=== PATIENT | male | born 1955 | race Caucasian/White ===

== ENCOUNTER 2020-05-17 08:19 | Inpatient (IN) ==
[2020-05-17] MEDS ORDERED: Ondansetron 4 MG/2 ML VIAL IVP PRN (09:54)
[2020-05-17] MEDS ORDERED: *HR* HYDROcodone/Acet 5/325 mg TABLET PO PRN (09:54)
[2020-05-17] MEDS ORDERED: Naloxone 0.4 MG/ML INJ IVP PRN (09:54)
[2020-05-17] MEDS ORDERED: *HR* Dextrose 50 % in Water (Vial) 50 ML VIAL IVP PRN (10:04)
[2020-05-17] MEDS ORDERED: Dextrose Gel 15 GM/37.5 ML TUBE PO PRN ×2 (10:04)
[2020-05-17] MEDS ORDERED: D5% in Water 1,000 ML IVC PRN (10:04)
[2020-05-17] MEDS ORDERED: levoFLOXacin 750 MG/150 ML 750 MG/150 ML BAG IVPB SCH (10:15)
[2020-05-17] MEDS: Ipratropium/Albuterol Neb 3 ML IH SCH ×5 (11:04→23:00)
[2020-05-17 11:30] LABS: ABG Base Excess 7 mEq/L (-2 to 3); ABG HCO3 36 mEq/L (21-27); ABG Oxygen Saturation 92 % (95-98); ABG PCO2 72 mmHg (35-45); ABG PH 7.31 pH Units (7.32-7.45); ABG PO2 73 mmHg (85-104); ABG TCO2 38 mEq/L (20-26)
[2020-05-17] MEDS ORDERED: *HR* Heparin 5,000 UNIT/ML VIAL IVP ONE (11:32)
[2020-05-17] MEDS ORDERED: *HR* Heparin 5,000 UNIT/ML VIAL IVP PRN ×2 (11:32)
[2020-05-17] MEDS ORDERED: Perflutren Lipid Microsphere 1.3 ML in 0.9 % Sodium Chloride 8.7 ML IVP PRN (11:33)
[2020-05-17 12:09] LABS: Hematocrit 42.7 % (37.5-50.1); Hemoglobin 12.7 g/dL (12.9-16.9); Mean Corpuscular HGB Conc 29.7 g/dL (31.6-35.5); Mean Corpuscular Hemoglobin 29.5 pg (28.0-33.3); Mean Corpuscular Volume 99.1 fL (83.0-100.0); Mean Platelet Volume 10.9 fL (9.4-12.4); Platelet Count 160 K/mcL (140-400); Red Blood Count 4.31 M/mcL (4.19-5.50); Red Cell Distribution Width 12.5 % (11.5-14.5); White Blood Count 6.1 K/mcL (4.3-11.1)
[2020-05-17] MEDS: MethylPREDNISolone 40 MG/ML VIAL IVP SCH ×3 (12:54→18:28)
[2020-05-17] MEDS: Insulin LISPRO 300 UNITS/3 ML VIAL SQ SCH ×2 (13:02→18:29)
[2020-05-17] MEDS: Heparin 25,000UNIT/250ML 1/2NS 25,000 UNIT/250 ML IV.SOLN IVC SCH (13:47)
[2020-05-17 14:13] LABS: Heparin anti-factor XA UFH 0.48 IU/mL (0.30-0.70)
[2020-05-17 14:14] LABS: INR 1.1; Prothrombin Time 12.2 Seconds (9.4-12.1)
[2020-05-17] MEDS: carvediloL 6.25 MG TABLET PO SCH (18:29)
[2020-05-17] MEDS: lamoTRIgine 100 MG TABLET PO SCH (19:42)
[2020-05-17] MEDS: Budesonide/Formoterol 160/4.5 1 PUFF INH IH SCH (20:30)
[2020-05-18] MEDS: MethylPREDNISolone 40 MG/ML VIAL IVP SCH ×3 (00:04→20:08)
[2020-05-18 01:52] LABS: Basophils % 0.1 %; Hemoglobin 12.3 g/dL (12.9-16.9); Immature Granulocytes % 0.9 % (0-4); Lymphocytes # 0.6 K/mcL (0.6-4.6); Lymphocytes % 7.7 %; Monocytes # 0.4 K/mcL (0.0-1.3); Monocytes % 4.3 %; Neutrophils # 7.1 K/mcL (1.6-8.9); Platelet Count 159 K/mcL (140-400); Red Cell Distribution Width 12.4 % (11.5-14.5); White Blood Count 8.2 K/mcL (4.3-11.1)
[2020-05-18 02:11] LABS: BUN/Creatinine Ratio 30 (6-26); Blood Urea Nitrogen 22 mg/dL (8-23); Calcium 8.8 mg/dL (8.6-10.3); Carbon Dioxide 32 mEq/L (23-29); Chloride 101 mEq/L (98-107); Glucose 249 mg/dL (70-105); Magnesium 1.8 mg/dL (1.6-2.6); Osmolality,Calculated 300 (280-300); Phosphorous 1.6 mg/dL (2.7-4.5); Potassium 4.6 mEq/L (3.5-5.1); Sodium 139 mEq/L (136-145); eGFR For African Americans > 60 (> 60); eGFR For Non-African Americans > 60 (> 60)
[2020-05-18] MEDS: Ipratropium/Albuterol Neb 3 ML IH SCH ×6 (03:57→23:49)
[2020-05-18] MEDS ORDERED: *HR* Enoxaparin 40 MG/0.4 ML SYRINGE SQ SCH (06:00)
[2020-05-18 09:22] LABS: VBG HCO3 32 mEq/L (21-27); VBG PCO2 58 mmHg (41-51); VBG PH 7.35 pH Units (7.32-7.42); VBG PO2 219 mmHg (25-50)
[2020-05-18] MEDS: carvediloL 6.25 MG TABLET PO SCH ×2 (10:41→16:55)
[2020-05-18] MEDS: Sennosides 8.6 MG TABLET PO SCH (10:41)
[2020-05-18] MEDS: Insulin DETEMIR 100 UNIT/ML X5UNITS SQ SCH ×2 (10:48→10:52)
[2020-05-18] MEDS: Insulin LISPRO 300 UNITS/3 ML VIAL SQ SCH ×3 (10:50→16:56)
[2020-05-18] MEDS: *HR* Buprenorphine HCl 2 MG SUBLINGUAL TABLET SL SCH (11:03)
[2020-05-18] MEDS: *HR* Buprenorphine HCl 8 MG TAB.SUBL SL SCH (11:03)
[2020-05-18] MEDS: methIMAzole 5 MG TABLET PO SCH (11:03)
[2020-05-18] MEDS: Budesonide/Formoterol 160/4.5 1 PUFF INH IH SCH ×2 (11:44→20:13)
[2020-05-18 12:38] LABS: Hematocrit 36.7 % (37.5-50.1); Hemoglobin 11.4 g/dL (12.9-16.9)
[2020-05-18] MEDS ORDERED: Azithromycin 500 MG in 0.9 % Sodium Chloride 250 ML IVPB ONE (13:56)
[2020-05-18] MEDS: Aspirin Enteric Coated 81 MG Tablet PO SCH (16:56)
[2020-05-18] MEDS: Heparin 25,000UNIT/250ML 1/2NS 25,000 UNIT/250 ML IV.SOLN IVC SCH (17:21)
[2020-05-18 19:06] LABS: Adenovirus Not Detected (Not Detect); Bordetella Pertussis Not Detected (Not Detect); Chlamydophila pneumoniae Not Detected (Not Detect); Coronavirus 229E Not Detected (Not Detect); Coronavirus HKU1 Not Detected (Not Detect); Coronavirus NL63 Not Detected (Not Detect); Coronavirus OC43 Not Detected (Not Detect); Human Metapneumovirus Not Detected (Not Detect); Human Rhinovirus/Enterovirus Not Detected (Not Detect); Influenza A Subtype 2009 H1 Not Detected (Not Detect); Influenza B Not Detected (Not Detect); Mycoplasma pneumoniae Not Detected (Not Detect); Parainfluenza Virus 1 Not Detected (Not Detect); Parainfluenza Virus 2 Not Detected (Not Detect); Parainfluenza Virus 3 Not Detected (Not Detect); Parainfluenza Virus 4 Not Detected (Not Detect); Respiratory Syncytial Virus Not Detected (Not Detect)
[2020-05-18] MEDS: lamoTRIgine 100 MG TABLET PO SCH (20:08)
[2020-05-19 01:48] LABS: VBG HCO3 31 mEq/L (21-27); VBG PCO2 44 mmHg (41-51); VBG PH 7.45 pH Units (7.32-7.42); VBG PO2 162 mmHg (25-50)
[2020-05-19 01:54] LABS: White Blood Count 11.8 K/mcL (4.3-11.1)
[2020-05-19 01:55] LABS: Basophils % 0.1 %; Hematocrit 35.8 % (37.5-50.1); Hemoglobin 11.2 g/dL (12.9-16.9); Immature Granulocytes % 0.9 % (0-4); Lymphocytes # 0.5 K/mcL (0.6-4.6); Lymphocytes % 4.5 %; Mean Corpuscular HGB Conc 31.3 g/dL (31.6-35.5); Mean Corpuscular Hemoglobin 30.8 pg (28.0-33.3); Mean Corpuscular Volume 98.4 fL (83.0-100.0); Monocytes # 0.3 K/mcL (0.0-1.3); Monocytes % 2.9 %; Neutrophils # 10.8 K/mcL (1.6-8.9); Platelet Count 165 K/mcL (140-400); Red Blood Count 3.64 M/mcL (4.19-5.50); Red Cell Distribution Width 12.7 % (11.5-14.5); Segmented Neutrophils % 91.6 %
[2020-05-19 02:03] LABS: BUN/Creatinine Ratio 40 (6-26); Blood Urea Nitrogen 34 mg/dL (8-23); Calcium 8.2 mg/dL (8.6-10.3); Carbon Dioxide 32 mEq/L (23-29); Chloride 101 mEq/L (98-107); Glucose 327 mg/dL (70-105); Magnesium 1.9 mg/dL (1.6-2.6); Osmolality,Calculated 302 (280-300); Potassium 5.3 mEq/L (3.5-5.1); Sodium 136 mEq/L (136-145); eGFR For African Americans > 60 (> 60); eGFR For Non-African Americans > 60 (> 60)
[2020-05-19] MEDS: Ipratropium/Albuterol Neb 3 ML IH SCH ×5 (03:40→20:42)
[2020-05-19] MEDS: Budesonide/Formoterol 160/4.5 1 PUFF INH IH SCH ×2 (07:37→20:42)
[2020-05-19] MEDS: methIMAzole 5 MG TABLET PO SCH (08:43)
[2020-05-19] MEDS: *HR* Buprenorphine HCl 8 MG TAB.SUBL SL SCH (08:43)
[2020-05-19] MEDS: Insulin LISPRO 300 UNITS/3 ML VIAL SQ SCH ×3 (08:43→16:31)
[2020-05-19] MEDS: carvediloL 6.25 MG TABLET PO SCH ×2 (08:44→16:38)
[2020-05-19] MEDS: Aspirin Enteric Coated 81 MG Tablet PO SCH (08:45)
[2020-05-19] MEDS: *HR* Buprenorphine HCl 2 MG SUBLINGUAL TABLET SL SCH (08:45)
[2020-05-19] MEDS: MethylPREDNISolone 40 MG/ML VIAL IVP SCH ×2 (08:45→19:44)
[2020-05-19] MEDS: Sennosides 8.6 MG TABLET PO SCH (08:45)
[2020-05-19] MEDS ORDERED: *HR* Heparin 10,000 UNIT/10 ML VIAL ONE (13:05)
[2020-05-19] MEDS ORDERED: Heparin 1,000 UNITS/500 mL 500 ML ONE (13:05)
[2020-05-19] MEDS ORDERED: 0.9 % Sodium Chloride 1,000 ML ONE ×2 (13:05→13:53)
[2020-05-19] MEDS ORDERED: ISOVUE-370 200 ML INFUS..BTL ONE (13:06)
[2020-05-19] MEDS ORDERED: Nitroglycerin 1,000 MCG/10 ML VIAL IV ONE ×2 (13:06→13:13)
[2020-05-19] MEDS ORDERED: Isovue-300 200 mL Infus..BTL ONE (13:14)
[2020-05-19] MEDS ORDERED: *HR* Midazolam HCl 2 MG/2 ML VIAL ONE (13:50)
[2020-05-19] MEDS ORDERED: *HR* FentaNYL (PF) 100 MCG/2 ML VIAL ONE (13:50)
[2020-05-19] MEDS: lamoTRIgine 100 MG TABLET PO SCH (19:47)
[2020-05-20] MEDS: Ipratropium/Albuterol Neb 3 ML IH SCH ×5 (00:24→15:58)
[2020-05-20 01:35] LABS: Basophils % 0.1 %; Hematocrit 34.7 % (37.5-50.1); Hemoglobin 10.9 g/dL (12.9-16.9); Immature Granulocytes % 0.6 % (0-4); Lymphocytes # 0.5 K/mcL (0.6-4.6); Lymphocytes % 5.8 %; Mean Corpuscular HGB Conc 31.4 g/dL (31.6-35.5); Mean Corpuscular Volume 98.6 fL (83.0-100.0); Mean Platelet Volume 10.7 fL (9.4-12.4); Monocytes # 0.5 K/mcL (0.0-1.3); Monocytes % 5.4 %; Neutrophils # 7.5 K/mcL (1.6-8.9); Platelet Count 159 K/mcL (140-400); Red Blood Count 3.52 M/mcL (4.19-5.50); Segmented Neutrophils % 88.1 %; White Blood Count 8.5 K/mcL (4.3-11.1)
[2020-05-20 01:38] LABS: VBG HCO3 31 mEq/L (21-27); VBG PCO2 38 mmHg (41-51); VBG PH 7.52 pH Units (7.32-7.42); VBG PO2 150 mmHg (25-50)
[2020-05-20 01:53] LABS: BUN/Creatinine Ratio 41 (6-26); Blood Urea Nitrogen 29 mg/dL (8-23); Calcium 8.1 mg/dL (8.6-10.3); Carbon Dioxide 30 mEq/L (23-29); Chloride 103 mEq/L (98-107); Glucose 212 mg/dL (70-105); Osmolality,Calculated 294 (280-300); Phosphorous 2.7 mg/dL (2.7-4.5); Sodium 136 mEq/L (136-145); eGFR For African Americans > 60 (> 60); eGFR For Non-African Americans > 60 (> 60)
[2020-05-20] MEDS ORDERED: *HR* Heparin 5,000 UNIT/ML VIAL SQ SCH (06:00)
[2020-05-20] MEDS: *HR* Buprenorphine HCl 8 MG TAB.SUBL SL SCH (08:33)
[2020-05-20] MEDS: *HR* Buprenorphine HCl 2 MG SUBLINGUAL TABLET SL SCH (08:33)
[2020-05-20] MEDS: carvediloL 6.25 MG TABLET PO SCH (08:34)
[2020-05-20] MEDS: Aspirin Enteric Coated 81 MG Tablet PO SCH (08:34)
[2020-05-20] MEDS: methIMAzole 5 MG TABLET PO SCH (08:34)
[2020-05-20] MEDS: Sennosides 8.6 MG TABLET PO SCH (08:36)
[2020-05-20] MEDS: MethylPREDNISolone 40 MG/ML VIAL IVP SCH (08:36)
[2020-05-20] MEDS: Insulin LISPRO 300 UNITS/3 ML VIAL SQ SCH ×2 (08:40→12:11)
[2020-05-20] MEDS ORDERED: Insulin DETEMIR 100 UNIT/ML X5UNITS SQ SCH (09:00)
[2020-05-20] MEDS: Budesonide/Formoterol 160/4.5 1 PUFF INH IH SCH (11:36)
[2020-05-20 14:53] VITALS: BP 110/66
== END 2020-05-20 16:07 | disposition home or self-care (01) | DRG 189 ==
LOC: 2NNU → SUATTDRO 17:59
PROVIDERS: ADMIT Internal Medicine; ATTEND Family Medicine

== ENCOUNTER 2020-06-19 13:23 | Inpatient (IN) ==
[2020-06-19] MEDS ORDERED: Naloxone 0.4 MG/ML INJ IVP PRN (16:41)
[2020-06-19] MEDS ORDERED: Nitroglycerin 0.4 MG TAB.SUBL SL PRN (19:04)
[2020-06-19] MEDS ORDERED: *HR* Dextrose 50 % in Water (Vial) 50 ML VIAL IVP PRN (19:05)
[2020-06-19] MEDS ORDERED: Dextrose Gel 15 GM/37.5 ML TUBE PO PRN ×2 (19:05)
[2020-06-19] MEDS ORDERED: D5% in Water 1,000 ML IVC PRN (19:05)
[2020-06-19] MEDS ORDERED: Nicotine 14 MG PATCH.TD24 TD PRN (19:06)
[2020-06-19] MEDS: MethylPREDNISolone 40 MG/ML VIAL IVP SCH (20:58)
[2020-06-19] MEDS: Insulin LISPRO 300 UNITS/3 ML VIAL SQ SCH (21:32)
[2020-06-19] MEDS: Ipratropium/Albuterol Neb 3 ML IH SCH ×2 (22:33→23:33)
[2020-06-20] MEDS: MethylPREDNISolone 40 MG/ML VIAL IVP SCH ×4 (00:01→17:50)
[2020-06-20 03:14] LABS: BUN/Creatinine Ratio 60 (6-26); Blood Urea Nitrogen 32 mg/dL (8-23); Calcium 8.4 mg/dL (8.6-10.3); Carbon Dioxide 40 mEq/L (23-29); Chloride 99 mEq/L (98-107); Glucose 113 mg/dL (70-105); Osmolality,Calculated 300 (280-300); Potassium 4.5 mEq/L (3.5-5.1); Sodium 141 mEq/L (136-145); eGFR For African Americans > 60 (> 60); eGFR For Non-African Americans > 60 (> 60)
[2020-06-20] MEDS: Ipratropium/Albuterol Neb 3 ML IH SCH ×6 (04:04→23:41)
[2020-06-20] MEDS: *HR* Heparin 5,000 UNIT/ML VIAL SQ SCH ×2 (05:50→17:02)
[2020-06-20] MEDS: Insulin LISPRO 300 UNITS/3 ML VIAL SQ SCH ×5 (07:58→21:44)
[2020-06-20] MEDS ORDERED: Sennosides/Docusate Sodium TABLET PO PRN (13:31)
[2020-06-20] MEDS ORDERED: Levalbuterol Neb 0.63 MG/3 ML IH PRN (13:31)
[2020-06-20 14:42] LABS: Estimated Average Glucose 146 mg/dl
[2020-06-20] MEDS ORDERED: ALPRAZolam 0.25 MG TABLET PO ONE (15:10)
[2020-06-20] MEDS: BUPRENORPHINE HCL SL SCH ×2 (15:42→16:35)
[2020-06-20] MEDS: NALOXONE HCL SL SCH ×2 (15:42→16:35)
[2020-06-20] MEDS: carvediloL 6.25 MG TABLET PO SCH (17:02)
[2020-06-20] MEDS: Budesonide/Formoterol 160/4.5 1 PUFF INH IH SCH (19:54)
[2020-06-20] MEDS ORDERED: Insulin DETEMIR 100 UNIT/ML X5UNITS SQ SCH (21:00)
[2020-06-20] MEDS: lamoTRIgine 100 MG TABLET PO SCH (21:42)
[2020-06-20] MEDS: Melatonin 3 MG TABLET PO SCH (21:42)
[2020-06-21 01:51] LABS: Basophils % 0.2 %; Hematocrit 33.8 % (37.5-50.1); Hemoglobin 10.4 g/dL (12.9-16.9); Lymphocytes # 0.5 K/mcL (0.6-4.6); Lymphocytes % 4.8 %; Mean Corpuscular HGB Conc 30.8 g/dL (31.6-35.5); Mean Corpuscular Volume 97.4 fL (83.0-100.0); Mean Platelet Volume 10.6 fL (9.4-12.4); Monocytes # 0.8 K/mcL (0.0-1.3); Monocytes % 7.5 %; Neutrophils # 9.5 K/mcL (1.6-8.9); Platelet Count 161 K/mcL (140-400); Red Blood Count 3.47 M/mcL (4.19-5.50); Red Cell Distribution Width 12.3 % (11.5-14.5); Segmented Neutrophils % 86.5 %
[2020-06-21 02:10] LABS: BUN/Creatinine Ratio 49 (6-26); Blood Urea Nitrogen 32 mg/dL (8-23); Calcium 8.2 mg/dL (8.6-10.3); Carbon Dioxide 35 mEq/L (23-29); Chloride 97 mEq/L (98-107); Glucose 293 mg/dL (70-105); Osmolality,Calculated 298 (280-300); Potassium 5.3 mEq/L (3.5-5.1); Sodium 135 mEq/L (136-145); eGFR For African Americans > 60 (> 60); eGFR For Non-African Americans > 60 (> 60)
[2020-06-21] MEDS: Ipratropium/Albuterol Neb 3 ML IH SCH ×6 (04:34→23:48)
[2020-06-21 04:47] LABS: ABG Base Excess 10 mEq/L (-2 to 3); ABG HCO3 39 mEq/L (21-27); ABG Oxygen Saturation 97 % (95-98); ABG PCO2 80 mmHg (35-45); ABG PO2 105 mmHg (85-104); ABG TCO2 42 mEq/L (20-26); Blood Gas FiO2 4.5 (1-15=lpm or21-100=%)
[2020-06-21] MEDS: MethylPREDNISolone 40 MG/ML VIAL IVP SCH (05:47)
[2020-06-21] MEDS: *HR* Heparin 5,000 UNIT/ML VIAL SQ SCH ×2 (05:47→16:40)
[2020-06-21] MEDS: Budesonide/Formoterol 160/4.5 1 PUFF INH IH SCH ×2 (07:31→19:44)
[2020-06-21] MEDS: Tiotropium 18 MCG inhalation IH SCH (07:32)
[2020-06-21] MEDS: carvediloL 6.25 MG TABLET PO SCH ×2 (09:00→16:39)
[2020-06-21] MEDS: Multivit/Ca/Min/Fe/FA 1 TAB TABLET PO SCH (09:00)
[2020-06-21] MEDS: Aspirin Enteric Coated 81 MG Tablet PO SCH (09:00)
[2020-06-21] MEDS: NALOXONE HCL SL SCH ×2 (09:01)
[2020-06-21] MEDS: BUPRENORPHINE HCL SL SCH ×2 (09:01)
[2020-06-21] MEDS: Insulin LISPRO 300 UNITS/3 ML VIAL SQ SCH ×7 (09:08→20:01)
[2020-06-21] MEDS: predniSONE 20 MG TABLET PO SCH (16:39)
[2020-06-21] MEDS: Melatonin 3 MG TABLET PO SCH (20:02)
[2020-06-21] MEDS: lamoTRIgine 100 MG TABLET PO SCH (20:02)
[2020-06-21] MEDS: Insulin DETEMIR 100 UNIT/ML X5UNITS SQ SCH (20:03)
[2020-06-22 02:56] LABS: Basophils % 0.2 %; Hematocrit 36.7 % (37.5-50.1); Hemoglobin 11.2 g/dL (12.9-16.9); Lymphocytes # 0.5 K/mcL (0.6-4.6); Lymphocytes % 4.9 %; Mean Corpuscular HGB Conc 30.5 g/dL (31.6-35.5); Mean Corpuscular Hemoglobin 30.4 pg (28.0-33.3); Mean Corpuscular Volume 99.5 fL (83.0-100.0); Monocytes # 0.5 K/mcL (0.0-1.3); Monocytes % 5.5 %; Neutrophils # 8.7 K/mcL (1.6-8.9); Platelet Count 162 K/mcL (140-400); Red Blood Count 3.69 M/mcL (4.19-5.50); Red Cell Distribution Width 12.4 % (11.5-14.5); Segmented Neutrophils % 88.4 %; White Blood Count 9.9 K/mcL (4.3-11.1)
[2020-06-22 03:12] LABS: BUN/Creatinine Ratio 46 (6-26); Blood Urea Nitrogen 32 mg/dL (8-23); Calcium 8.7 mg/dL (8.6-10.3); Carbon Dioxide 34 mEq/L (23-29); Chloride 98 mEq/L (98-107); Glucose 222 mg/dL (70-105); Osmolality,Calculated 294 (280-300); Potassium 5.1 mEq/L (3.5-5.1); Sodium 135 mEq/L (136-145); eGFR For African Americans > 60 (> 60); eGFR For Non-African Americans > 60 (> 60)
[2020-06-22] MEDS: Ipratropium/Albuterol Neb 3 ML IH SCH ×6 (04:20→23:06)
[2020-06-22] MEDS: *HR* Heparin 5,000 UNIT/ML VIAL SQ SCH ×2 (04:50→16:33)
[2020-06-22] MEDS: Budesonide/Formoterol 160/4.5 1 PUFF INH IH SCH ×2 (07:25→19:52)
[2020-06-22] MEDS: Tiotropium 18 MCG inhalation IH SCH (07:28)
[2020-06-22] MEDS: Insulin LISPRO 300 UNITS/3 ML VIAL SQ SCH ×7 (07:41→21:10)
[2020-06-22] MEDS: Multivit/Ca/Min/Fe/FA 1 TAB TABLET PO SCH (07:41)
[2020-06-22] MEDS: predniSONE 20 MG TABLET PO SCH (07:41)
[2020-06-22] MEDS: carvediloL 6.25 MG TABLET PO SCH ×2 (07:41→16:34)
[2020-06-22] MEDS: Aspirin Enteric Coated 81 MG Tablet PO SCH (07:41)
[2020-06-22] MEDS: NALOXONE HCL SL SCH ×2 (07:42→07:54)
[2020-06-22] MEDS: BUPRENORPHINE HCL SL SCH ×2 (07:42→07:54)
[2020-06-22] MEDS ORDERED: Azithromycin 250 MG TABLET PO ONE (10:44)
[2020-06-22] MEDS: lamoTRIgine 100 MG TABLET PO SCH (21:10)
[2020-06-22] MEDS: Melatonin 3 MG TABLET PO SCH (21:10)
[2020-06-22] MEDS: Insulin DETEMIR 100 UNIT/ML X5UNITS SQ SCH (21:15)
[2020-06-23] MEDS: Ipratropium/Albuterol Neb 3 ML IH SCH ×3 (03:38→11:15)
[2020-06-23] MEDS: *HR* Heparin 5,000 UNIT/ML VIAL SQ SCH (06:21)
[2020-06-23] MEDS: Budesonide/Formoterol 160/4.5 1 PUFF INH IH SCH (07:34)
[2020-06-23] MEDS: Tiotropium 18 MCG inhalation IH SCH (07:37)
[2020-06-23] MEDS: Insulin LISPRO 300 UNITS/3 ML VIAL SQ SCH ×2 (08:00)
[2020-06-23] MEDS: predniSONE 20 MG TABLET PO SCH (08:18)
[2020-06-23] MEDS: Aspirin Enteric Coated 81 MG Tablet PO SCH (08:18)
[2020-06-23] MEDS: NALOXONE HCL SL SCH ×2 (08:19)
[2020-06-23] MEDS: Multivit/Ca/Min/Fe/FA 1 TAB TABLET PO SCH (08:19)
[2020-06-23] MEDS: BUPRENORPHINE HCL SL SCH ×2 (08:19)
[2020-06-23] MEDS: carvediloL 6.25 MG TABLET PO SCH (08:19)
[2020-06-23] MEDS ORDERED: Azithromycin 250 MG TABLET PO SCH (09:00)
[2020-06-23 12:13] VITALS: BP 130/77
[2020-06-23 12:51] LABS: Adenovirus Not Detected (Not Detect); Bordetella Pertussis Not Detected (Not Detect); Chlamydophila pneumoniae Not Detected (Not Detect); Coronavirus 229E Not Detected (Not Detect); Coronavirus HKU1 Not Detected (Not Detect); Coronavirus NL63 Not Detected (Not Detect); Coronavirus OC43 Not Detected (Not Detect); Human Metapneumovirus Not Detected (Not Detect); Human Rhinovirus/Enterovirus Not Detected (Not Detect); Influenza A Subtype 2009 H1 Not Detected (Not Detect); Influenza B Not Detected (Not Detect); Mycoplasma pneumoniae Not Detected (Not Detect); Parainfluenza Virus 1 Not Detected (Not Detect); Parainfluenza Virus 2 Not Detected (Not Detect); Parainfluenza Virus 3 Not Detected (Not Detect); Parainfluenza Virus 4 Not Detected (Not Detect); Respiratory Syncytial Virus Not Detected (Not Detect); SARS-CoV-2 Not Detected (Not Detect)
== END 2020-06-23 12:55 | disposition home or self-care (01) | DRG 190 ==
LOC: 2ANU → SUATTDRO 17:20 → 2ANU 06-22 16:16 → UNDODISIN 06-22 16:20
PROVIDERS: ADMIT Student in an Organized Health Care Education/Training Program; ATTEND General Practice

== ENCOUNTER 2020-08-06 19:32 | Observation (INO) ==
[2020-08-06] MEDS ORDERED: Naloxone 0.4 MG/ML INJ IVP PRN (22:04)
[2020-08-06] MEDS ORDERED: Albuterol 2.5 MG/3 ML NEBULIZER IH PRN (22:04)
[2020-08-06] MEDS: Azithromycin 250 MG TABLET PO SCH (23:25)
[2020-08-07 03:59] LABS: Bacteria,Urine Few per hpf (None-Few); Bilirubin,Urine Negative (Negative); Blood,Urine Negative (Negative); Clarity,Urine Turbid (Clear); Color,Urine Yellow (Yellow); Glucose,Urine (UA) >=1000 mg/dL (Normal); Ketones,Urine Negative (Negative); Leukocyte Esterase,Urine Large (Negative); Mucus,Urine Few per lpf (None-Few); Nitrite,Urine Negative (Negative); PH,Urine 6.5 pH Units (5.0-8.0); Protein,Urine Trace mg/dL (Neg-Trace); Specific Gravity,Urine 1.021 (1.010-1.025); Urobilinogen,Urine Normal (Normal); WBC,Urine TNTC per hpf (0-3)
[2020-08-07 05:17] LABS: Basophils % 0.6 %; Hematocrit 42.6 % (37.5-50.1); Hemoglobin 12.7 g/dL (12.9-16.9); Immature Granulocytes % 1.6 % (0-4); Lymphocytes # 0.7 K/mcL (0.6-4.6); Lymphocytes % 10.6 %; Mean Corpuscular HGB Conc 29.8 g/dL (31.6-35.5); Mean Corpuscular Hemoglobin 28.9 pg (28.0-33.3); Mean Platelet Volume 9.7 fL (9.4-12.4); Monocytes # 0.1 K/mcL (0.0-1.3); Monocytes % 2.2 %; Neutrophils # 5.4 K/mcL (1.6-8.9); Platelet Count 188 K/mcL (140-400); Red Blood Count 4.39 M/mcL (4.19-5.50); Red Cell Distribution Width 12.2 % (11.5-14.5); White Blood Count 6.4 K/mcL (4.3-11.1)
[2020-08-07 05:35] LABS: BUN/Creatinine Ratio 28 (6-26); Blood Urea Nitrogen 22 mg/dL (8-23); Calcium 9.2 mg/dL (8.6-10.3); Carbon Dioxide 39 mEq/L (23-29); Chloride 96 mEq/L (98-107); Glucose 323 mg/dL (70-105); Osmolality,Calculated 300 (280-300); Potassium 5.1 mEq/L (3.5-5.1); Sodium 137 mEq/L (136-145); eGFR For African Americans > 60 (> 60); eGFR For Non-African Americans > 60 (> 60)
[2020-08-07] MEDS: Tiotropium 10 INH DOSE IH SCH (07:37)
[2020-08-07] MEDS: Azithromycin 250 MG TABLET PO SCH (07:59)
[2020-08-07] MEDS: Nicotine 14 MG PATCH.TD24 TD SCH (07:59)
[2020-08-07] MEDS: Insulin LISPRO 300 UNITS/3 ML VIAL SUBQ SCH ×5 (07:59→21:15)
[2020-08-07] MEDS: carvediloL 6.25 MG TABLET PO SCH ×2 (07:59→16:36)
[2020-08-07] MEDS: Aspirin Enteric Coated 81 MG Tablet PO SCH (07:59)
[2020-08-07] MEDS: predniSONE 20 MG TABLET PO SCH (07:59)
[2020-08-07] MEDS ORDERED: *HR* Dextrose 50 % in Water (Vial) 50 ML VIAL IVP PRN (13:57)
[2020-08-07] MEDS ORDERED: Dextrose Gel 15 GM/37.5 ML TUBE PO PRN ×2 (13:57)
[2020-08-07] MEDS ORDERED: D5% in Water 1,000 ML IVC PRN (13:57)
[2020-08-07] MEDS: BUPRENORPHINE NALOXONE SL SCH (14:25)
[2020-08-07] MEDS: BUPRENORPHIN NALOXONE SL SCH (14:26)
[2020-08-07] MEDS: *HR* Heparin 5,000 UNIT/ML VIAL SQ SCH (16:34)
[2020-08-07] MEDS: Budesonide/Formoterol 160/4.5 1 PUFF INH IH SCH (20:06)
[2020-08-07] MEDS: Insulin DETEMIR 100 UNIT/ML X5UNITS SUBQ SCH (21:16)
[2020-08-08] MEDS: *HR* Heparin 5,000 UNIT/ML VIAL SQ SCH ×2 (06:19→17:45)
[2020-08-08] MEDS: predniSONE 20 MG TABLET PO SCH (09:04)
[2020-08-08] MEDS: Aspirin Enteric Coated 81 MG Tablet PO SCH (09:04)
[2020-08-08] MEDS: Insulin LISPRO 300 UNITS/3 ML VIAL SUBQ SCH ×7 (09:05→20:37)
[2020-08-08] MEDS: Azithromycin 250 MG TABLET PO SCH (09:05)
[2020-08-08] MEDS: carvediloL 6.25 MG TABLET PO SCH ×2 (09:05→16:51)
[2020-08-08] MEDS: BUPRENORPHIN NALOXONE SL SCH (09:22)
[2020-08-08] MEDS: BUPRENORPHINE NALOXONE SL SCH (09:22)
[2020-08-08] MEDS: cefTRIAXone 1,000 MG in Water for inj. (sterile) 10 ML IVP SCH (09:33)
[2020-08-08] MEDS: Nicotine 14 MG PATCH.TD24 TD SCH (09:34)
[2020-08-08] MEDS: Tiotropium 10 INH DOSE IH SCH (10:24)
[2020-08-08] MEDS: Budesonide/Formoterol 160/4.5 1 PUFF INH IH SCH ×2 (10:24→19:41)
[2020-08-08] MEDS: Insulin DETEMIR 100 UNIT/ML X5UNITS SUBQ SCH (20:36)
[2020-08-08] MEDS: Sennosides/Docusate Sodium TABLET PO SCH (20:36)
[2020-08-09] MEDS ORDERED: Melatonin 3 MG TABLET PO ONE (02:44)
[2020-08-09] MEDS: *HR* Heparin 5,000 UNIT/ML VIAL SQ SCH ×2 (05:34→16:27)
[2020-08-09] MEDS: Insulin LISPRO 300 UNITS/3 ML VIAL SUBQ SCH ×7 (07:09→20:22)
[2020-08-09] MEDS: Tiotropium 10 INH DOSE IH SCH (07:40)
[2020-08-09] MEDS: Budesonide/Formoterol 160/4.5 1 PUFF INH IH SCH ×2 (07:40→19:29)
[2020-08-09] MEDS: hydrOXYzine pamoate 25 MG CAPSULE PO SCH ×2 (09:12→20:21)
[2020-08-09] MEDS: predniSONE 20 MG TABLET PO SCH (09:13)
[2020-08-09] MEDS: BUPRENORPHIN NALOXONE SL SCH (09:13)
[2020-08-09] MEDS: BUPRENORPHINE NALOXONE SL SCH (09:13)
[2020-08-09] MEDS: carvediloL 6.25 MG TABLET PO SCH ×2 (09:13→16:27)
[2020-08-09] MEDS: Azithromycin 250 MG TABLET PO SCH (09:13)
[2020-08-09] MEDS: Aspirin Enteric Coated 81 MG Tablet PO SCH (09:13)
[2020-08-09] MEDS: Sennosides/Docusate Sodium TABLET PO SCH ×2 (09:13→20:21)
[2020-08-09] MEDS: Nicotine 14 MG PATCH.TD24 TD SCH (09:14)
[2020-08-09] MEDS: cefTRIAXone 1,000 MG in Water for inj. (sterile) 10 ML IVP SCH (09:14)
[2020-08-09] MEDS: Insulin DETEMIR 100 UNIT/ML X5UNITS SUBQ SCH (20:22)
[2020-08-09] MEDS ORDERED: lamoTRIgine 100 MG TABLET PO SCH (21:00)
[2020-08-09] MEDS ORDERED: Melatonin 3 MG TABLET PO SCH (21:00)
[2020-08-10] MEDS: *HR* Heparin 5,000 UNIT/ML VIAL SQ SCH (05:58)
[2020-08-10] MEDS: Insulin LISPRO 300 UNITS/3 ML VIAL SUBQ SCH ×4 (07:18→11:35)
[2020-08-10] MEDS: Budesonide/Formoterol 160/4.5 1 PUFF INH IH SCH (08:17)
[2020-08-10] MEDS: Tiotropium 10 INH DOSE IH SCH (08:17)
[2020-08-10] MEDS: cefTRIAXone 1,000 MG in Water for inj. (sterile) 10 ML IVP SCH (09:19)
[2020-08-10] MEDS: BUPRENORPHIN NALOXONE SL SCH (09:20)
[2020-08-10] MEDS: carvediloL 6.25 MG TABLET PO SCH (09:20)
[2020-08-10] MEDS: BUPRENORPHINE NALOXONE SL SCH (09:20)
[2020-08-10] MEDS: Sennosides/Docusate Sodium TABLET PO SCH (09:20)
[2020-08-10] MEDS: Azithromycin 250 MG TABLET PO SCH (09:20)
[2020-08-10] MEDS: predniSONE 20 MG TABLET PO SCH (09:20)
[2020-08-10] MEDS: Aspirin Enteric Coated 81 MG Tablet PO SCH (09:21)
[2020-08-10] MEDS: Nicotine 14 MG PATCH.TD24 TD SCH (09:24)
[2020-08-10 11:13] VITALS: BP 116/71
[2020-08-10] MEDS: hydrOXYzine pamoate 25 MG CAPSULE PO SCH (12:12)
== END 2020-08-10 15:10 | disposition home health service (06) ==
LOC: 2ANU → SUATTDRO 20:25
PROVIDERS: ADMIT Internal Medicine; ATTEND Internal Medicine

== ENCOUNTER 2021-07-03 08:13 | Inpatient (IN) ==
[2021-07-03] MEDS ORDERED: Isovue-370 500 ML BOTTLE IVP ONE (08:20)
[2021-07-03] MEDS ORDERED: Ipratropium/Albuterol Neb 3 ML IH ONE (08:20)
[2021-07-03 08:47] LABS: Basophils # 0.1 K/mcL (0.0-0.2); Basophils % 0.7 %; Hematocrit 46.4 % (37.5-50.1); Hemoglobin 14.4 g/dL (12.9-16.9); Immature Granulocytes % 3.9 % (0-4); Lymphocytes % 9.6 %; Mean Corpuscular Hemoglobin 28.5 pg (28.0-33.3); Mean Corpuscular Volume 91.9 fL (83.0-100.0); Mean Platelet Volume 9.6 fL (9.4-12.4); Monocytes # 0.8 K/mcL (0.0-1.3); Monocytes % 7.5 %; Neutrophils # 8.2 K/mcL (1.6-8.9); Platelet Count 213 K/mcL (140-400); Red Blood Count 5.05 M/mcL (4.19-5.50); Red Cell Distribution Width 12.7 % (11.5-14.5); Segmented Neutrophils % 78.3 %; White Blood Count 10.5 K/mcL (4.3-11.1)
[2021-07-03 09:07] LABS: ABG Base Excess 4 mEq/L (-2 to 3); ABG HCO3 30 mEq/L (21-27); ABG Oxygen Saturation 89 % (95-98); ABG PCO2 49 mmHg (35-45); ABG PO2 58 mmHg (85-104); ABG TCO2 32 mEq/L (20-26)
[2021-07-03 09:11] LABS: Alanine Aminotransferase 40 Units/L (7-52); Albumin 3.6 g/dL (3.5-5.7); Albumin/Globulin Ratio 0.8 (1.1-2.2); Alkaline Phosphatase 78 Units/L (34-104); Aspartate Amino Transferase 51 Units/L (13-39); BUN/Creatinine Ratio 24 (6-26); Bilirubin,Direct 0.2 mg/dL (0.0-0.2); Bilirubin,Indirect 0.3 mg/dL (0.0-1.0); Bilirubin,Total 0.5 mg/dL (0.3-1.0); Blood Urea Nitrogen 19 mg/dL (8-23); Calcium 9.2 mg/dL (8.6-10.3); Carbon Dioxide 29 mEq/L (23-29); Chloride 97 mEq/L (98-107); Globulin 4.3 g/dL (2.4-3.5); Glucose 282 mg/dL (70-105); Magnesium 1.7 mg/dL (1.6-2.6); Osmolality,Calculated 290 (280-300); Potassium 4.2 mEq/L (3.5-5.1); Sodium 134 mEq/L (136-145); Total Protein 7.9 g/dL (6.4-8.9); Troponin I 0.06 ng/mL (< 0.04); eGFR For African Americans > 60 (> 60); eGFR For Non-African Americans > 60 (> 60)
[2021-07-03 09:19] LABS: Thyroid Stimulating Hormone 0.143 mcIU/mL (0.340-5.600)
[2021-07-03] MEDS ORDERED: cefTRIAXone 2,000 MG in Water for inj. (sterile) 10 ML IVP ONE (10:00)
[2021-07-03] MEDS ORDERED: 0.9 % Sodium Chloride 1,000 ML IV ONE (10:00)
[2021-07-03] MEDS ORDERED: Azithromycin 500 MG in 0.9 % Sodium Chloride 250 ML IVPB ONE (10:00)
[2021-07-03] MEDS ORDERED: Ondansetron 4 MG/2 ML VIAL IVP PRN (11:12)
[2021-07-03] MEDS ORDERED: Naloxone 0.4 MG/ML INJ IVP PRN (11:12)
[2021-07-03] MEDS ORDERED: Remdesivir 200 MG in 0.9 % Sodium Chloride 100 ML IVPB ONE (11:18)
[2021-07-03] MEDS ORDERED: Dextrose Gel 15 GM/37.5 ML TUBE PO PRN ×2 (15:19)
[2021-07-03] MEDS ORDERED: D5% in Water 1,000 ML IVC PRN (15:19)
[2021-07-03] MEDS ORDERED: *HR* Dextrose 50 % in Water (Syg) 50 ML SYRINGE IVP PRN (15:19)
[2021-07-03] MEDS: Ipratropium 1 PUFF INHALER IH SCH ×2 (16:00→19:45)
[2021-07-03] MEDS: Furosemide 40 MG/4 ML VIAL IVP SCH (16:51)
[2021-07-03] MEDS: Insulin LISPRO 300 UNITS/3 ML VIAL SUBQ SCH ×2 (16:51→20:56)
[2021-07-03] MEDS: traZODone 50 MG TABLET PO SCH (20:55)
[2021-07-04 01:25] LABS: Basophils # 0.1 K/mcL (0.0-0.2); Basophils % 0.7 %; Hematocrit 41.8 % (37.5-50.1); Hemoglobin 13.4 g/dL (12.9-16.9); Immature Granulocytes % 5.3 % (0-4); Lymphocytes # 0.9 K/mcL (0.6-4.6); Lymphocytes % 10.4 %; Mean Corpuscular HGB Conc 32.1 g/dL (31.6-35.5); Mean Corpuscular Hemoglobin 29.2 pg (28.0-33.3); Mean Corpuscular Volume 91.1 fL (83.0-100.0); Mean Platelet Volume 9.6 fL (9.4-12.4); Monocytes # 0.9 K/mcL (0.0-1.3); Monocytes % 10.8 %; Platelet Count 201 K/mcL (140-400); Red Blood Count 4.59 M/mcL (4.19-5.50); Red Cell Distribution Width 12.9 % (11.5-14.5); Segmented Neutrophils % 72.8 %; White Blood Count 8.2 K/mcL (4.3-11.1)
[2021-07-04 01:45] LABS: BUN/Creatinine Ratio 28 (6-26); Blood Urea Nitrogen 21 mg/dL (8-23); Calcium 9.1 mg/dL (8.6-10.3); Carbon Dioxide 29 mEq/L (23-29); Chloride 100 mEq/L (98-107); Glucose 276 mg/dL (70-105); Magnesium 2.1 mg/dL (1.6-2.6); Osmolality,Calculated 295 (280-300); Potassium 4.5 mEq/L (3.5-5.1); Sodium 136 mEq/L (136-145); eGFR For African Americans > 60 (> 60); eGFR For Non-African Americans > 60 (> 60)
[2021-07-04 02:20] LABS: Platelet Estimate Normal (Normal)
[2021-07-04] MEDS: Ipratropium 1 PUFF INHALER IH SCH ×4 (03:02→20:16)
[2021-07-04] MEDS ORDERED: Aspirin 325 MG TABLET PO ONE (03:47)
[2021-07-04] MEDS ORDERED: *HR* Heparin 5,000 UNIT/ML VIAL IVP ONE (03:50)
[2021-07-04] MEDS ORDERED: Perflutren Lipid Microsphere 1.3 ML in 0.9 % Sodium Chloride 8.7 ML IVP PRN (03:50)
[2021-07-04] MEDS ORDERED: *HR* Heparin 5,000 UNIT/ML VIAL IVP PRN ×2 (03:50)
[2021-07-04] MEDS ORDERED: Heparin 25,000UNIT/250ML 1/2NS 25,000 UNIT/250 ML IV.SOLN IVC SCH (04:00)
[2021-07-04] MEDS ORDERED: Heparin 25,000 UNIT/250 ML 25,000 UNIT/250 ML IV.SOLN IVC SCH (04:15)
[2021-07-04] MEDS ORDERED: *HR* Enoxaparin 40 MG/0.4 ML SYRINGE SQ SCH (07:00)
[2021-07-04] MEDS: Cholecalciferol (D-3) 1,000 UNIT (25MCG) TABLET PO SCH (08:52)
[2021-07-04] MEDS: Insulin LISPRO 300 UNITS/3 ML VIAL SUBQ SCH ×4 (08:52→21:33)
[2021-07-04] MEDS: Furosemide 40 MG/4 ML VIAL IVP SCH (08:52)
[2021-07-04] MEDS: Loratadine 10 MG TABLET PO SCH (08:52)
[2021-07-04] MEDS ORDERED: cefTRIAXone 1,000 MG in 0.9 % Sodium Chloride Mini Bag 100 ML IVPB SCH (09:00)
[2021-07-04] MEDS ORDERED: Azithromycin 500 MG in 0.9 % Sodium Chloride 250 ML IVPB SCH (12:00)
[2021-07-04] MEDS: BUPRENORPHINE HCL SL SCH ×2 (14:16)
[2021-07-04] MEDS: Sennosides/Docusate Sodium TABLET PO SCH ×2 (14:16→21:46)
[2021-07-04] MEDS: NALOXONE HCL SL SCH ×2 (14:16)
[2021-07-04] MEDS: Remdesivir 100 MG in 0.9 % Sodium Chloride 100 ML IVPB SCH (14:17)
[2021-07-04] MEDS ORDERED: Insulin DETEMIR 100 UNIT/ML X5UNITS SUBQ SCH (21:00)
[2021-07-04] MEDS: traZODone 50 MG TABLET PO SCH (21:32)
[2021-07-05] MEDS: Ipratropium 1 PUFF INHALER IH SCH ×4 (03:52→20:25)
[2021-07-05] MEDS: *HR* Enoxaparin 40 MG/0.4 ML SYRINGE SQ SCH (05:01)
[2021-07-05 06:19] LABS: Hematocrit 44.5 % (37.5-50.1); Hemoglobin 13.4 g/dL (12.9-16.9); Mean Corpuscular HGB Conc 30.1 g/dL (31.6-35.5); Mean Corpuscular Hemoglobin 27.9 pg (28.0-33.3); Mean Corpuscular Volume 92.7 fL (83.0-100.0); Mean Platelet Volume 9.7 fL (9.4-12.4); Platelet Count 273 K/mcL (140-400); Red Cell Distribution Width 12.8 % (11.5-14.5); White Blood Count 10.9 K/mcL (4.3-11.1)
[2021-07-05 06:46] LABS: Albumin 3.4 g/dL (3.5-5.7); Albumin/Globulin Ratio 0.9 (1.1-2.2); Bilirubin,Direct 0.2 mg/dL (0.0-0.2); Bilirubin,Indirect 0.3 mg/dL (0.0-1.0); Bilirubin,Total 0.5 mg/dL (0.3-1.0); Lymphocytes # 1.3 K/mcL (0.6-4.6); Monocytes # 1.1 K/mcL (0.0-1.3); Neutrophils # 7.9 K/mcL (1.6-8.9); Platelet Estimate Normal (Normal); Total Protein 7.4 g/dL (6.4-8.9)
[2021-07-05 06:55] LABS: BUN/Creatinine Ratio 35 (6-26); Blood Urea Nitrogen 27 mg/dL (8-23); Calcium 9.3 mg/dL (8.6-10.3); Carbon Dioxide 32 mEq/L (23-29); Chloride 97 mEq/L (98-107); Glucose 163 mg/dL (70-105); Osmolality,Calculated 291 (280-300); Sodium 136 mEq/L (136-145); eGFR For African Americans > 60 (> 60); eGFR For Non-African Americans > 60 (> 60)
[2021-07-05] MEDS: Sennosides/Docusate Sodium TABLET PO SCH ×2 (08:20→21:25)
[2021-07-05] MEDS: Loratadine 10 MG TABLET PO SCH (08:20)
[2021-07-05] MEDS: Furosemide 40 MG/4 ML VIAL IVP SCH (08:20)
[2021-07-05] MEDS: Cholecalciferol (D-3) 1,000 UNIT (25MCG) TABLET PO SCH (08:20)
[2021-07-05] MEDS: Aspirin Enteric Coated 81 MG Tablet PO SCH (08:20)
[2021-07-05] MEDS: Insulin LISPRO 300 UNITS/3 ML VIAL SUBQ SCH ×4 (08:33→21:25)
[2021-07-05] MEDS: BUPRENORPHINE HCL SL SCH ×2 (08:57)
[2021-07-05] MEDS: NALOXONE HCL SL SCH ×2 (08:57)
[2021-07-05] MEDS ORDERED: Tiotropium 10 INH DOSE IH SCH (09:00)
[2021-07-05] MEDS: Remdesivir 100 MG in 0.9 % Sodium Chloride 100 ML IVPB SCH (12:20)
[2021-07-05] MEDS: Budesonide/Formoterol 160/4.5 1 PUFF INH IH SCH (20:25)
[2021-07-05] MEDS ORDERED: Insulin DETEMIR 100 UNIT/ML X5UNITS SUBQ SCH (21:00)
[2021-07-05] MEDS: lamoTRIgine 100 MG TABLET PO SCH (21:25)
[2021-07-05] MEDS: Melatonin 3 MG TABLET PO SCH (21:26)
[2021-07-06] MEDS: Ipratropium 1 PUFF INHALER IH SCH ×4 (03:49→21:36)
[2021-07-06 05:14] LABS: Basophils % 0.2 %; Eosinophils % 0.2 %; Hematocrit 44.7 % (37.5-50.1); Hemoglobin 13.9 g/dL (12.9-16.9); Immature Granulocytes % 11.7 % (0-4); Lymphocytes # 1.6 K/mcL (0.6-4.6); Lymphocytes % 12.3 %; Mean Corpuscular HGB Conc 31.1 g/dL (31.6-35.5); Mean Corpuscular Hemoglobin 28.5 pg (28.0-33.3); Mean Corpuscular Volume 91.6 fL (83.0-100.0); Mean Platelet Volume 9.7 fL (9.4-12.4); Monocytes % 7.7 %; Neutrophils # 8.9 K/mcL (1.6-8.9); Platelet Count 314 K/mcL (140-400); Red Blood Count 4.88 M/mcL (4.19-5.50); Red Cell Distribution Width 12.8 % (11.5-14.5); Segmented Neutrophils % 67.9 %; White Blood Count 13.1 K/mcL (4.3-11.1)
[2021-07-06 05:24] LABS: BUN/Creatinine Ratio 32 (6-26); Blood Urea Nitrogen 26 mg/dL (8-23); Carbon Dioxide 28 mEq/L (23-29); Chloride 98 mEq/L (98-107); Glucose 251 mg/dL (70-105); Osmolality,Calculated 291 (280-300); Potassium 4.5 mEq/L (3.5-5.1); Sodium 134 mEq/L (136-145); eGFR For African Americans > 60 (> 60); eGFR For Non-African Americans > 60 (> 60)
[2021-07-06 05:25] LABS: Albumin 3.5 g/dL (3.5-5.7); Albumin/Globulin Ratio 0.9 (1.1-2.2); Bilirubin,Direct 0.1 mg/dL (0.0-0.2); Bilirubin,Indirect 0.3 mg/dL (0.0-1.0); Bilirubin,Total 0.4 mg/dL (0.3-1.0); Globulin 3.8 g/dL (2.4-3.5); Total Protein 7.3 g/dL (6.4-8.9)
[2021-07-06 06:26] LABS: Platelet Estimate Normal (Normal); Reactive Lymphocytes Present (Not Present)
[2021-07-06] MEDS: *HR* Enoxaparin 40 MG/0.4 ML SYRINGE SQ SCH (06:34)
[2021-07-06] MEDS: Insulin LISPRO 300 UNITS/3 ML VIAL SUBQ SCH ×5 (10:01→20:45)
[2021-07-06] MEDS: Aspirin Enteric Coated 81 MG Tablet PO SCH (10:03)
[2021-07-06] MEDS: Loratadine 10 MG TABLET PO SCH (10:04)
[2021-07-06] MEDS: Cholecalciferol (D-3) 1,000 UNIT (25MCG) TABLET PO SCH (10:05)
[2021-07-06] MEDS: Sennosides/Docusate Sodium TABLET PO SCH ×2 (10:05→20:44)
[2021-07-06] MEDS: NALOXONE HCL SL SCH ×2 (10:15→10:26)
[2021-07-06] MEDS: BUPRENORPHINE HCL SL SCH ×2 (10:15→10:26)
[2021-07-06] MEDS: Budesonide/Formoterol 160/4.5 1 PUFF INH IH SCH ×2 (10:35→21:37)
[2021-07-06] MEDS: Remdesivir 100 MG in 0.9 % Sodium Chloride 100 ML IVPB SCH (12:59)
[2021-07-06] MEDS: Melatonin 3 MG TABLET PO SCH (20:44)
[2021-07-06] MEDS: lamoTRIgine 100 MG TABLET PO SCH (20:44)
[2021-07-06] MEDS: Insulin DETEMIR 100 UNIT/ML X5UNITS SUBQ SCH (20:45)
[2021-07-07] MEDS: Ipratropium 1 PUFF INHALER IH SCH ×4 (03:27→20:53)
[2021-07-07] MEDS: *HR* Enoxaparin 40 MG/0.4 ML SYRINGE SQ SCH (05:48)
[2021-07-07 06:01] LABS: BUN/Creatinine Ratio 31 (6-26); Blood Urea Nitrogen 26 mg/dL (8-23); Calcium 8.9 mg/dL (8.6-10.3); Carbon Dioxide 27 mEq/L (23-29); Chloride 98 mEq/L (98-107); Glucose 380 mg/dL (70-105); Osmolality,Calculated 292 (280-300); Potassium 4.5 mEq/L (3.5-5.1); Sodium 131 mEq/L (136-145); eGFR For African Americans > 60 (> 60); eGFR For Non-African Americans > 60 (> 60)
[2021-07-07 06:05] LABS: Albumin 3.3 g/dL (3.5-5.7); Albumin/Globulin Ratio 0.9 (1.1-2.2); Bilirubin,Direct 0.1 mg/dL (0.0-0.2); Bilirubin,Indirect 0.3 mg/dL (0.0-1.0); Bilirubin,Total 0.4 mg/dL (0.3-1.0); Globulin 3.6 g/dL (2.4-3.5); Total Protein 6.9 g/dL (6.4-8.9)
[2021-07-07 06:08] LABS: Hemoglobin 13.9 g/dL (12.9-16.9); Mean Corpuscular HGB Conc 30.9 g/dL (31.6-35.5); Mean Corpuscular Volume 90.5 fL (83.0-100.0); Mean Platelet Volume 9.5 fL (9.4-12.4); Platelet Count 317 K/mcL (140-400); Red Blood Count 4.97 M/mcL (4.19-5.50); Red Cell Distribution Width 12.8 % (11.5-14.5)
[2021-07-07 06:36] LABS: Lymphocytes # 1.8 K/mcL (0.6-4.6); Monocytes # 1.3 K/mcL (0.0-1.3); Neutrophils # 7.3 K/mcL (1.6-8.9); Platelet Estimate Normal (Normal); Reactive Lymphocytes Present (Not Present)
[2021-07-07] MEDS: Budesonide/Formoterol 160/4.5 1 PUFF INH IH SCH ×2 (07:47→20:53)
[2021-07-07] MEDS: Insulin LISPRO 300 UNITS/3 ML VIAL SUBQ SCH ×7 (09:25→20:42)
[2021-07-07] MEDS: Insulin DETEMIR 100 UNIT/ML X5UNITS SUBQ SCH ×2 (09:27→20:42)
[2021-07-07] MEDS: Aspirin Enteric Coated 81 MG Tablet PO SCH (09:28)
[2021-07-07] MEDS: Cholecalciferol (D-3) 1,000 UNIT (25MCG) TABLET PO SCH (09:28)
[2021-07-07] MEDS: Sennosides/Docusate Sodium TABLET PO SCH ×2 (09:28→20:41)
[2021-07-07] MEDS: Loratadine 10 MG TABLET PO SCH (09:28)
[2021-07-07] MEDS: BUPRENORPHINE HCL SL SCH ×2 (09:28)
[2021-07-07] MEDS: NALOXONE HCL SL SCH ×2 (09:28)
[2021-07-07] MEDS: Remdesivir 100 MG in 0.9 % Sodium Chloride 100 ML IVPB SCH (12:30)
[2021-07-07] MEDS: Melatonin 3 MG TABLET PO SCH (20:41)
[2021-07-07] MEDS: lamoTRIgine 100 MG TABLET PO SCH (20:42)
[2021-07-08] MEDS: Ipratropium 1 PUFF INHALER IH SCH ×4 (04:22→22:23)
[2021-07-08] MEDS: *HR* Enoxaparin 40 MG/0.4 ML SYRINGE SQ SCH (05:48)
[2021-07-08 07:24] LABS: Alanine Aminotransferase 36 Units/L (7-52); Albumin/Globulin Ratio 0.9 (1.1-2.2); Alkaline Phosphatase 66 Units/L (34-104); Aspartate Amino Transferase 27 Units/L (13-39); BUN/Creatinine Ratio 31 (6-26); Bilirubin,Direct 0.1 mg/dL (0.0-0.2); Bilirubin,Indirect 0.3 mg/dL (0.0-1.0); Bilirubin,Total 0.4 mg/dL (0.3-1.0); Blood Urea Nitrogen 23 mg/dL (8-23); Calcium 8.6 mg/dL (8.6-10.3); Carbon Dioxide 28 mEq/L (23-29); Chloride 99 mEq/L (98-107); Globulin 3.3 g/dL (2.4-3.5); Glucose 195 mg/dL (70-105); Osmolality,Calculated 287 (280-300); Potassium 4.2 mEq/L (3.5-5.1); Sodium 134 mEq/L (136-145); Total Protein 6.3 g/dL (6.4-8.9); eGFR For African Americans > 60 (> 60); eGFR For Non-African Americans > 60 (> 60)
[2021-07-08 08:58] LABS: Eosinophils # 0.3 K/mcL (0.0-0.6); Hematocrit 41.5 % (37.5-50.1); Hemoglobin 13.3 g/dL (12.9-16.9); Mean Corpuscular Hemoglobin 28.9 pg (28.0-33.3); Mean Platelet Volume 9.5 fL (9.4-12.4); Platelet Count 318 K/mcL (140-400); Red Blood Count 4.61 M/mcL (4.19-5.50); Red Cell Distribution Width 12.8 % (11.5-14.5); White Blood Count 12.5 K/mcL (4.3-11.1)
[2021-07-08 09:08] LABS: C-Reactive Protein < 5 mg/L (Less than 10)
[2021-07-08 09:27] LABS: Neutrophils # 8.5 K/mcL (1.6-8.9); Platelet Estimate Normal (Normal)
[2021-07-08] MEDS: Budesonide/Formoterol 160/4.5 1 PUFF INH IH SCH ×2 (10:47→22:23)
[2021-07-08] MEDS: Cholecalciferol (D-3) 1,000 UNIT (25MCG) TABLET PO SCH (11:00)
[2021-07-08] MEDS: Insulin DETEMIR 100 UNIT/ML X5UNITS SUBQ SCH ×2 (11:00→20:14)
[2021-07-08] MEDS: Aspirin Enteric Coated 81 MG Tablet PO SCH (11:01)
[2021-07-08] MEDS: Insulin LISPRO 300 UNITS/3 ML VIAL SUBQ SCH ×7 (11:01→21:53)
[2021-07-08] MEDS: BUPRENORPHINE HCL SL SCH ×2 (11:01)
[2021-07-08] MEDS: Sennosides/Docusate Sodium TABLET PO SCH ×2 (11:01→20:13)
[2021-07-08] MEDS: NALOXONE HCL SL SCH ×2 (11:01)
[2021-07-08 17:20] LABS: Ferritin 268 ng/mL (20-250)
[2021-07-08] MEDS: lamoTRIgine 100 MG TABLET PO SCH (20:13)
[2021-07-08] MEDS: Melatonin 3 MG TABLET PO SCH (20:13)
[2021-07-09] MEDS: Ipratropium 1 PUFF INHALER IH SCH ×3 (03:56→15:12)
[2021-07-09] MEDS: *HR* Enoxaparin 40 MG/0.4 ML SYRINGE SQ SCH (06:26)
[2021-07-09] MEDS: Budesonide/Formoterol 160/4.5 1 PUFF INH IH SCH (08:53)
[2021-07-09] MEDS: Insulin LISPRO 300 UNITS/3 ML VIAL SUBQ SCH ×6 (10:25→16:21)
[2021-07-09] MEDS: Cholecalciferol (D-3) 1,000 UNIT (25MCG) TABLET PO SCH (10:44)
[2021-07-09] MEDS: BUPRENORPHINE HCL SL SCH ×2 (10:44)
[2021-07-09] MEDS: Insulin DETEMIR 100 UNIT/ML X5UNITS SUBQ SCH (10:44)
[2021-07-09] MEDS: Sennosides/Docusate Sodium TABLET PO SCH (10:44)
[2021-07-09] MEDS: Aspirin Enteric Coated 81 MG Tablet PO SCH (10:44)
[2021-07-09] MEDS: NALOXONE HCL SL SCH ×2 (10:44)
[2021-07-09 15:33] VITALS: TEMP 98
[2021-07-09 19:04] VITALS: BP 99/64; PULSE 72; O2SAT 95
== END 2021-07-09 20:10 | DRG 177 ==
LOC: EMEROOARM 08:13 → 2NENU 08:13 → SUATTDRO 15:21
PROVIDERS: ADMIT Pharmacist; ATTEND Student in an Organized Health Care Education/Training Program

== ENCOUNTER 2022-03-13 12:56 | Inpatient (IN) ==
[2022-03-13 13:55] LABS: Basophils # 0.1 K/mcL (0.0-0.2); Basophils % 1.1 %; Eosinophils # 0.4 K/mcL (0.0-0.6); Eosinophils % 4.2 %; Hematocrit 46.9 % (37.5-50.1); Hemoglobin 14.4 g/dL (12.9-16.9); Immature Granulocytes % 1.6 % (0-4); Lymphocytes # 1.7 K/mcL (0.6-4.6); Lymphocytes % 19.6 %; Mean Corpuscular HGB Conc 30.7 g/dL (31.6-35.5); Mean Corpuscular Volume 94.6 fL (83.0-100.0); Mean Platelet Volume 9.2 fL (9.4-12.4); Monocytes # 0.9 K/mcL (0.0-1.3); Neutrophils # 5.6 K/mcL (1.6-8.9); Platelet Count 259 K/mcL (140-400); Red Blood Count 4.96 M/mcL (4.19-5.50); Red Cell Distribution Width 12.5 % (11.5-14.5); Segmented Neutrophils % 63.5 %; White Blood Count 8.8 K/mcL (4.3-11.1)
[2022-03-13 14:04] LABS: BUN/Creatinine Ratio 19 (6-26); Blood Urea Nitrogen 16 mg/dL (8-23); Calcium 9.3 mg/dL (8.6-10.3); Carbon Dioxide 35 mEq/L (23-29); Chloride 95 mEq/L (98-107); Glucose 203 mg/dL (70-105); Osmolality,Calculated 287 (280-300); Potassium 4.8 mEq/L (3.5-5.1); Sodium 135 mEq/L (136-145)
[2022-03-13 14:11] LABS: Troponin I 0.04 ng/mL (< 0.04)
[2022-03-13] MEDS ORDERED: predniSONE 20 MG TABLET PO ONE (14:15)
[2022-03-13] MEDS: Ipratropium/Albuterol Neb 3 ML IH SCH ×2 (14:31→21:48)
[2022-03-13 15:05] LABS: VBG HCO3 36 mEq/L (21-27); VBG PCO2 69 mmHg (41-51); VBG PH 7.33 pH Units (7.32-7.42); VBG PO2 217 mmHg (25-50)
[2022-03-13] MEDS ORDERED: Ipratropium/Albuterol Neb 3 ML IH ONE (15:09)
[2022-03-13] MEDS ORDERED: Doxycycline 100 MG CAPSULE PO ONE (15:49)
[2022-03-13 15:57] LABS: Influenza A PCR Negative (Negative); Influenza B PCR Negative (Negative); Resp. Syncytial Virus PCR Negative (Negative); SARS-CoV-2 by PCR (In House) Negative (Negative)
[2022-03-13] MEDS ORDERED: Ondansetron 4 MG/2 ML VIAL IVP PRN (17:04)
[2022-03-13] MEDS ORDERED: Acetaminophen 325 MG TABLET PO PRN (17:04)
[2022-03-13] MEDS ORDERED: Naloxone 0.4 MG/ML INJ IVP PRN (17:04)
[2022-03-13] MEDS ORDERED: D5% in Water 1,000 ML IVC PRN (17:11)
[2022-03-13] MEDS ORDERED: *HR* Dextrose 50 % in Water (Syg) 50 ML SYRINGE IVP PRN (17:11)
[2022-03-13] MEDS ORDERED: Dextrose Gel 15 GM/37.5 ML TUBE PO PRN ×2 (17:11)
[2022-03-13] MEDS ORDERED: Nitroglycerin 0.4 MG TAB.SUBL SL PRN (17:17)
[2022-03-13] MEDS: MethylPREDNISolone 40 MG/ML VIAL IVP SCH ×2 (18:17→23:31)
[2022-03-13] MEDS: Aspirin Enteric Coated 81 MG Tablet PO SCH (18:17)
[2022-03-13] MEDS: Azithromycin 500 MG in D5% in Water 250 ML IVPB SCH (18:17)
[2022-03-13 19:41] LABS: Magnesium 1.8 mg/dL (1.6-2.6); Troponin I 0.03 ng/mL (< 0.04)
[2022-03-13 20:31] LABS: Estimated Average Glucose 220 mg/dl; Hemoglobin A1C 9.3 %
[2022-03-13] MEDS ORDERED: Insulin LISPRO 300 UNITS/3 ML VIAL SUBQ SCH (21:00)
[2022-03-13] MEDS ORDERED: *HR* LORazepam 2 MG/ML VIAL IVP ONE (23:21)
[2022-03-14 02:58] LABS: Basophils # 0.1 K/mcL (0.0-0.2); Basophils % 0.7 %; Hematocrit 42.7 % (37.5-50.1); Hemoglobin 13.3 g/dL (12.9-16.9); Immature Granulocytes % 1.7 % (0-4); Lymphocytes # 0.5 K/mcL (0.6-4.6); Lymphocytes % 7.6 %; Mean Corpuscular HGB Conc 31.1 g/dL (31.6-35.5); Mean Corpuscular Hemoglobin 29.6 pg (28.0-33.3); Mean Corpuscular Volume 95.1 fL (83.0-100.0); Mean Platelet Volume 9.6 fL (9.4-12.4); Monocytes # 0.1 K/mcL (0.0-1.3); Monocytes % 0.7 %; Neutrophils # 6.2 K/mcL (1.6-8.9); Platelet Count 240 K/mcL (140-400); Red Blood Count 4.49 M/mcL (4.19-5.50); Red Cell Distribution Width 12.4 % (11.5-14.5); Segmented Neutrophils % 89.3 %; White Blood Count 6.9 K/mcL (4.3-11.1)
[2022-03-14 03:18] LABS: Albumin 3.5 g/dL (3.5-5.7); Albumin/Globulin Ratio 0.8 (1.1-2.2); Bilirubin,Total 0.5 mg/dL (0.3-1.0); Calcium 9.1 mg/dL (8.6-10.3); Chol/HDL Ratio 2.1 (0-4.9); Globulin 4.2 g/dL (2.4-3.5); Potassium 5.3 mEq/L (3.5-5.1); Total Protein 7.7 g/dL (6.4-8.9)
[2022-03-14] MEDS: Ipratropium/Albuterol Neb 3 ML IH SCH ×4 (03:47→22:07)
[2022-03-14] MEDS: MethylPREDNISolone 40 MG/ML VIAL IVP SCH ×3 (06:09→17:08)
[2022-03-14] MEDS ORDERED: SODIUM ZIRCONIUM CYCLOSILICATE 5 GM POWD.PACK PO ONE (07:08)
[2022-03-14] MEDS ORDERED: Insulin LISPRO 300 UNITS/3 ML VIAL SUBQ SCH (07:30)
[2022-03-14] MEDS: Aspirin Enteric Coated 81 MG Tablet PO SCH (07:53)
[2022-03-14] MEDS: Insulin LISPRO 300 UNITS/3 ML VIAL SUBQ SCH ×5 (07:54→21:02)
[2022-03-14] MEDS ORDERED: Insulin DETEMIR 100 UNIT/ML X5UNITS SUBQ ONE (10:00)
[2022-03-14] MEDS ORDERED: Famotidine 20 MG TABLET PO PRN (14:47)
[2022-03-14] MEDS: Azithromycin 500 MG in D5% in Water 250 ML IVPB SCH (17:09)
[2022-03-14] MEDS ORDERED: Insulin DETEMIR 100 UNIT/ML X5UNITS SUBQ SCH (21:00)
[2022-03-14] MEDS: lamoTRIgine 100 MG TABLET PO SCH (21:02)
[2022-03-14] MEDS: Clotrimazole 1% CRM 15 GM TUBE TP SCH (21:02)
[2022-03-14] MEDS: Budesonide/Formoterol 160/4.5 1 PUFF INH IH SCH (22:06)
[2022-03-15] MEDS: MethylPREDNISolone 40 MG/ML VIAL IVP SCH ×3 (00:24→17:15)
[2022-03-15] MEDS: Ipratropium/Albuterol Neb 3 ML IH SCH ×4 (03:52→22:55)
[2022-03-15 04:00] LABS: Basophils % 0.2 %; Hematocrit 40.8 % (37.5-50.1); Hemoglobin 12.5 g/dL (12.9-16.9); Immature Granulocytes % 1.4 % (0-4); Lymphocytes % 4.7 %; Mean Corpuscular HGB Conc 30.6 g/dL (31.6-35.5); Mean Corpuscular Hemoglobin 28.9 pg (28.0-33.3); Mean Corpuscular Volume 94.4 fL (83.0-100.0); Mean Platelet Volume 9.6 fL (9.4-12.4); Monocytes # 0.9 K/mcL (0.0-1.3); Neutrophils # 19.5 K/mcL (1.6-8.9); Platelet Count 268 K/mcL (140-400); Red Blood Count 4.32 M/mcL (4.19-5.50); Red Cell Distribution Width 12.5 % (11.5-14.5); Segmented Neutrophils % 89.7 %; White Blood Count 21.7 K/mcL (4.3-11.1)
[2022-03-15 04:19] LABS: BUN/Creatinine Ratio 38 (6-26); Blood Urea Nitrogen 35 mg/dL (8-23); Calcium 8.6 mg/dL (8.6-10.3); Carbon Dioxide 36 mEq/L (23-29); Chloride 95 mEq/L (98-107); Glucose 242 mg/dL (70-105); Osmolality,Calculated 290 (280-300); Potassium 5.3 mEq/L (3.5-5.1); Sodium 132 mEq/L (136-145)
[2022-03-15] MEDS: Insulin DETEMIR 100 UNIT/ML X5UNITS SUBQ SCH ×2 (08:45→22:23)
[2022-03-15] MEDS: Insulin LISPRO 300 UNITS/3 ML VIAL SUBQ SCH ×7 (08:46→22:23)
[2022-03-15] MEDS: lamoTRIgine 100 MG TABLET PO SCH ×2 (08:50→22:24)
[2022-03-15] MEDS: Aspirin Enteric Coated 81 MG Tablet PO SCH (08:51)
[2022-03-15] MEDS: Clotrimazole 1% CRM 15 GM TUBE TP SCH ×2 (08:53→22:26)
[2022-03-15] MEDS: Budesonide/Formoterol 160/4.5 1 PUFF INH IH SCH ×2 (10:46→22:55)
[2022-03-15] MEDS: Azithromycin 500 MG in D5% in Water 250 ML IVPB SCH (17:14)
[2022-03-15] MEDS: Nystatin SUSP 5 ML UD.LIQ PO SCH (22:24)
[2022-03-15] MEDS: Sennosides/Docusate Sodium TABLET PO SCH (22:25)
[2022-03-16 03:10] LABS: Basophils # 0.1 K/mcL (0.0-0.2); Basophils % 0.3 %; Hematocrit 39.5 % (37.5-50.1); Hemoglobin 12.1 g/dL (12.9-16.9); Immature Granulocytes % 1.3 % (0-4); Lymphocytes # 1.4 K/mcL (0.6-4.6); Lymphocytes % 8.2 %; Mean Corpuscular HGB Conc 30.6 g/dL (31.6-35.5); Mean Corpuscular Volume 94.7 fL (83.0-100.0); Mean Platelet Volume 9.5 fL (9.4-12.4); Monocytes # 1.4 K/mcL (0.0-1.3); Neutrophils # 14.3 K/mcL (1.6-8.9); Platelet Count 238 K/mcL (140-400); Red Blood Count 4.17 M/mcL (4.19-5.50); Red Cell Distribution Width 12.6 % (11.5-14.5); Segmented Neutrophils % 82.2 %; White Blood Count 17.4 K/mcL (4.3-11.1)
[2022-03-16 03:32] LABS: BUN/Creatinine Ratio 41 (6-26); Blood Urea Nitrogen 37 mg/dL (8-23); Calcium 8.6 mg/dL (8.6-10.3); Carbon Dioxide 35 mEq/L (23-29); Chloride 98 mEq/L (98-107); Glucose 208 mg/dL (70-105); Osmolality,Calculated 295 (280-300); Phosphorous 2.7 mg/dL (2.7-4.5); Sodium 135 mEq/L (136-145)
[2022-03-16] MEDS: Ipratropium/Albuterol Neb 3 ML IH SCH ×4 (04:13→22:53)
[2022-03-16] MEDS: MethylPREDNISolone 40 MG/ML VIAL IVP SCH ×2 (05:08→17:26)
[2022-03-16] MEDS: *HR* Enoxaparin 40 MG/0.4 ML SYRINGE SQ SCH (05:25)
[2022-03-16] MEDS: Insulin LISPRO 300 UNITS/3 ML VIAL SUBQ SCH ×6 (09:02→17:24)
[2022-03-16] MEDS: Aspirin Enteric Coated 81 MG Tablet PO SCH (09:03)
[2022-03-16] MEDS: Nystatin SUSP 5 ML UD.LIQ PO SCH ×2 (09:04→20:55)
[2022-03-16] MEDS: lamoTRIgine 100 MG TABLET PO SCH ×2 (09:04→20:55)
[2022-03-16] MEDS: Clotrimazole 1% CRM 15 GM TUBE TP SCH ×2 (09:18→20:55)
[2022-03-16] MEDS: Insulin DETEMIR 100 UNIT/ML X5UNITS SUBQ SCH ×2 (09:18→20:54)
[2022-03-16] MEDS: Budesonide/Formoterol 160/4.5 1 PUFF INH IH SCH ×2 (10:23→22:49)
[2022-03-16] MEDS: Acetylcysteine 10% 2 ML INHSOL IH SCH ×3 (10:24→22:50)
[2022-03-16] MEDS: *HR* Acetylcysteine 20% 600 MG/3 ML ORAL SYRINGE PO SCH ×2 (14:25→20:54)
[2022-03-16] MEDS: Azithromycin 500 MG in D5% in Water 250 ML IVPB SCH (17:22)
[2022-03-16] MEDS: Sennosides/Docusate Sodium TABLET PO SCH (20:54)
[2022-03-17] MEDS: Acetylcysteine 10% 2 ML INHSOL IH SCH ×4 (03:53→22:19)
[2022-03-17] MEDS: Ipratropium/Albuterol Neb 3 ML IH SCH ×4 (03:53→22:18)
[2022-03-17] MEDS: MethylPREDNISolone 40 MG/ML VIAL IVP SCH ×3 (05:00→19:00)
[2022-03-17] MEDS: *HR* Enoxaparin 40 MG/0.4 ML SYRINGE SQ SCH (05:00)
[2022-03-17] MEDS: *HR* Acetylcysteine 20% 600 MG/3 ML ORAL SYRINGE PO SCH (09:03)
[2022-03-17] MEDS: Aspirin Enteric Coated 81 MG Tablet PO SCH (09:04)
[2022-03-17] MEDS: Nystatin SUSP 5 ML UD.LIQ PO SCH ×2 (09:05→20:29)
[2022-03-17] MEDS: lamoTRIgine 100 MG TABLET PO SCH ×2 (09:05→20:26)
[2022-03-17] MEDS: Insulin DETEMIR 100 UNIT/ML X5UNITS SUBQ SCH ×2 (09:06→20:27)
[2022-03-17] MEDS: Clotrimazole 1% CRM 15 GM TUBE TP SCH ×2 (09:07→20:26)
[2022-03-17] MEDS: Insulin LISPRO 300 UNITS/3 ML VIAL SUBQ SCH ×6 (09:09→17:00)
[2022-03-17] MEDS: Budesonide/Formoterol 160/4.5 1 PUFF INH IH SCH ×2 (11:18→22:18)
[2022-03-17] MEDS: Azithromycin 500 MG in D5% in Water 250 ML IVPB SCH (17:01)
[2022-03-17] MEDS: Sennosides/Docusate Sodium TABLET PO SCH (20:26)
[2022-03-18] MEDS: Ipratropium/Albuterol Neb 3 ML IH SCH ×4 (04:03→21:27)
[2022-03-18] MEDS: Acetylcysteine 10% 2 ML INHSOL IH SCH ×4 (04:03→21:29)
[2022-03-18] MEDS: MethylPREDNISolone 40 MG/ML VIAL IVP SCH ×3 (04:33→18:40)
[2022-03-18] MEDS: *HR* Enoxaparin 40 MG/0.4 ML SYRINGE SQ SCH (05:46)
[2022-03-18] MEDS: Aspirin Enteric Coated 81 MG Tablet PO SCH (08:04)
[2022-03-18] MEDS: Nystatin SUSP 5 ML UD.LIQ PO SCH ×2 (08:04→20:20)
[2022-03-18] MEDS: lamoTRIgine 100 MG TABLET PO SCH ×2 (08:05→20:19)
[2022-03-18] MEDS: Insulin DETEMIR 100 UNIT/ML X5UNITS SUBQ SCH ×2 (08:06→21:45)
[2022-03-18] MEDS: Insulin LISPRO 300 UNITS/3 ML VIAL SUBQ SCH ×7 (08:07→21:45)
[2022-03-18 08:57] LABS: Basophils # 0.1 K/mcL (0.0-0.2); Basophils % 0.5 %; Hematocrit 41.7 % (37.5-50.1); Hemoglobin 12.9 g/dL (12.9-16.9); Immature Granulocytes % 2.1 % (0-4); Lymphocytes # 0.9 K/mcL (0.6-4.6); Lymphocytes % 7.3 %; Mean Corpuscular HGB Conc 30.9 g/dL (31.6-35.5); Mean Corpuscular Hemoglobin 29.3 pg (28.0-33.3); Mean Corpuscular Volume 94.6 fL (83.0-100.0); Mean Platelet Volume 9.7 fL (9.4-12.4); Monocytes # 0.7 K/mcL (0.0-1.3); Platelet Count 231 K/mcL (140-400); Red Blood Count 4.41 M/mcL (4.19-5.50); Red Cell Distribution Width 12.5 % (11.5-14.5); Segmented Neutrophils % 84.1 %; White Blood Count 11.9 K/mcL (4.3-11.1)
[2022-03-18] MEDS: Clotrimazole 1% CRM 15 GM TUBE TP SCH ×2 (09:21→20:20)
[2022-03-18] MEDS: Budesonide/Formoterol 160/4.5 1 PUFF INH IH SCH ×2 (11:06→21:29)
[2022-03-18] MEDS: Sennosides/Docusate Sodium TABLET PO SCH (20:19)
[2022-03-18] MEDS ORDERED: D5% in Water 1,000 ML IVC PRN (21:16)
[2022-03-18] MEDS ORDERED: Dextrose Gel 15 GM/37.5 ML TUBE PO PRN ×2 (21:16)
[2022-03-18] MEDS ORDERED: *HR* Dextrose 50 % in Water (Syg) 50 ML SYRINGE IVP PRN (21:16)
[2022-03-19] MEDS: MethylPREDNISolone 40 MG/ML VIAL IVP SCH ×2 (03:25→16:21)
[2022-03-19] MEDS: Acetylcysteine 10% 2 ML INHSOL IH SCH ×4 (04:21→21:11)
[2022-03-19] MEDS: Ipratropium/Albuterol Neb 3 ML IH SCH ×4 (04:21→21:11)
[2022-03-19] MEDS: *HR* Enoxaparin 40 MG/0.4 ML SYRINGE SQ SCH (04:59)
[2022-03-19] MEDS: Nystatin SUSP 5 ML UD.LIQ PO SCH ×2 (07:59→21:02)
[2022-03-19] MEDS: lamoTRIgine 100 MG TABLET PO SCH ×2 (07:59→21:02)
[2022-03-19] MEDS: Aspirin Enteric Coated 81 MG Tablet PO SCH (07:59)
[2022-03-19] MEDS: Clotrimazole 1% CRM 15 GM TUBE TP SCH ×2 (08:00→21:07)
[2022-03-19] MEDS: Insulin LISPRO 300 UNITS/3 ML VIAL SUBQ SCH ×6 (08:01→16:22)
[2022-03-19] MEDS: Insulin DETEMIR 100 UNIT/ML X5UNITS SUBQ SCH ×2 (08:04→21:02)
[2022-03-19] MEDS: Budesonide/Formoterol 160/4.5 1 PUFF INH IH SCH ×2 (10:50→21:11)
[2022-03-19] MEDS: Sennosides/Docusate Sodium TABLET PO SCH (21:02)
[2022-03-20] MEDS: Insulin LISPRO 300 UNITS/3 ML VIAL SUBQ SCH ×8 (03:52→22:25)
[2022-03-20] MEDS: MethylPREDNISolone 40 MG/ML VIAL IVP SCH ×2 (04:00→17:30)
[2022-03-20] MEDS: Acetylcysteine 10% 2 ML INHSOL IH SCH ×4 (04:25→22:58)
[2022-03-20] MEDS: Ipratropium/Albuterol Neb 3 ML IH SCH ×4 (04:25→22:58)
[2022-03-20] MEDS: *HR* Enoxaparin 40 MG/0.4 ML SYRINGE SQ SCH (05:54)
[2022-03-20] MEDS: Nystatin SUSP 5 ML UD.LIQ PO SCH ×2 (08:33→22:25)
[2022-03-20] MEDS: Insulin DETEMIR 100 UNIT/ML X5UNITS SUBQ SCH ×2 (08:33→22:25)
[2022-03-20] MEDS: Aspirin Enteric Coated 81 MG Tablet PO SCH (08:33)
[2022-03-20] MEDS: lamoTRIgine 100 MG TABLET PO SCH ×2 (08:33→22:25)
[2022-03-20] MEDS: Budesonide/Formoterol 160/4.5 1 PUFF INH IH SCH ×2 (09:44→22:59)
[2022-03-20 15:31] LABS: Adenovirus Not Detected (Not Detect); Bordetella Pertussis Not Detected (Not Detect); Chlamydophila pneumoniae Not Detected (Not Detect); Coronavirus 229E Not Detected (Not Detect); Coronavirus HKU1 Not Detected (Not Detect); Coronavirus NL63 Not Detected (Not Detect); Coronavirus OC43 Not Detected (Not Detect); Human Metapneumovirus Not Detected (Not Detect); Human Rhinovirus/Enterovirus Not Detected (Not Detect); Influenza A Subtype 2009 H1 Not Detected (Not Detect); Influenza B Not Detected (Not Detect); Mycoplasma pneumoniae Not Detected (Not Detect); Parainfluenza Virus 1 Not Detected (Not Detect); Parainfluenza Virus 2 Not Detected (Not Detect); Parainfluenza Virus 3 Not Detected (Not Detect); Parainfluenza Virus 4 Not Detected (Not Detect); Respiratory Syncytial Virus Not Detected (Not Detect); SARS-CoV-2 Not Detected (Not Detect)
[2022-03-20] MEDS: Sennosides/Docusate Sodium TABLET PO SCH (22:26)
[2022-03-21] MEDS: Ipratropium/Albuterol Neb 3 ML IH SCH ×4 (03:50→19:48)
[2022-03-21] MEDS: Acetylcysteine 10% 2 ML INHSOL IH SCH (03:50)
[2022-03-21] MEDS: *HR* Enoxaparin 40 MG/0.4 ML SYRINGE SQ SCH (05:34)
[2022-03-21] MEDS: MethylPREDNISolone 40 MG/ML VIAL IVP SCH ×2 (05:34→17:11)
[2022-03-21] MEDS: lamoTRIgine 100 MG TABLET PO SCH ×2 (08:23→21:11)
[2022-03-21] MEDS: Aspirin Enteric Coated 81 MG Tablet PO SCH (08:23)
[2022-03-21] MEDS: Nystatin SUSP 5 ML UD.LIQ PO SCH ×2 (08:23→21:08)
[2022-03-21] MEDS: Insulin LISPRO 300 UNITS/3 ML VIAL SUBQ SCH ×7 (08:23→21:10)
[2022-03-21] MEDS: Insulin DETEMIR 100 UNIT/ML X5UNITS SUBQ SCH ×2 (08:29→21:09)
[2022-03-21] MEDS: Budesonide/Formoterol 160/4.5 1 PUFF INH IH SCH ×2 (10:18→19:48)
[2022-03-21] MEDS: Sennosides/Docusate Sodium TABLET PO SCH (21:08)
[2022-03-22 03:08] LABS: Basophils # 0.2 K/mcL (0.0-0.2); Basophils % 1.3 %; Eosinophils % 0.2 %; Hematocrit 40.8 % (37.5-50.1); Hemoglobin 12.9 g/dL (12.9-16.9); Immature Granulocytes % 4.6 % (0-4); Lymphocytes # 1.6 K/mcL (0.6-4.6); Mean Corpuscular HGB Conc 31.6 g/dL (31.6-35.5); Mean Corpuscular Hemoglobin 29.9 pg (28.0-33.3); Mean Corpuscular Volume 94.7 fL (83.0-100.0); Mean Platelet Volume 10.4 fL (9.4-12.4); Monocytes # 1.5 K/mcL (0.0-1.3); Monocytes % 9.9 %; Neutrophils # 10.9 K/mcL (1.6-8.9); Platelet Count 244 K/mcL (140-400); Red Blood Count 4.31 M/mcL (4.19-5.50); Red Cell Distribution Width 12.6 % (11.5-14.5); White Blood Count 14.9 K/mcL (4.3-11.1)
[2022-03-22 03:23] LABS: Calcium 8.6 mg/dL (8.6-10.3); Potassium 4.7 mEq/L (3.5-5.1)
[2022-03-22] MEDS: Ipratropium/Albuterol Neb 3 ML IH SCH ×4 (03:51→22:15)
[2022-03-22] MEDS: MethylPREDNISolone 40 MG/ML VIAL IVP SCH ×2 (04:59→16:00)
[2022-03-22] MEDS: *HR* Enoxaparin 40 MG/0.4 ML SYRINGE SQ SCH (05:03)
[2022-03-22] MEDS: Nystatin SUSP 5 ML UD.LIQ PO SCH ×2 (08:08→21:59)
[2022-03-22] MEDS: Insulin DETEMIR 100 UNIT/ML X5UNITS SUBQ SCH ×2 (08:09→21:59)
[2022-03-22] MEDS: Aspirin Enteric Coated 81 MG Tablet PO SCH (08:09)
[2022-03-22] MEDS: lamoTRIgine 100 MG TABLET PO SCH ×2 (08:09→22:01)
[2022-03-22] MEDS: Insulin LISPRO 300 UNITS/3 ML VIAL SUBQ SCH ×7 (08:09→22:04)
[2022-03-22] MEDS: Budesonide/Formoterol 160/4.5 1 PUFF INH IH SCH ×2 (10:24→22:15)
[2022-03-22] MEDS ORDERED: *HR* LORazepam 0.5 MG TABLET PO ONE (10:49)
[2022-03-22] MEDS: Sennosides/Docusate Sodium TABLET PO SCH (22:01)
[2022-03-23 03:26] LABS: Basophils # 0.2 K/mcL (0.0-0.2); Basophils % 1.2 %; Eosinophils % 0.2 %; Hematocrit 40.5 % (37.5-50.1); Hemoglobin 12.5 g/dL (12.9-16.9); Immature Granulocytes % 5.4 % (0-4); Lymphocytes # 1.8 K/mcL (0.6-4.6); Lymphocytes % 12.4 %; Mean Corpuscular HGB Conc 30.9 g/dL (31.6-35.5); Mean Corpuscular Hemoglobin 29.3 pg (28.0-33.3); Mean Corpuscular Volume 95.1 fL (83.0-100.0); Mean Platelet Volume 10.3 fL (9.4-12.4); Monocytes # 1.5 K/mcL (0.0-1.3); Monocytes % 10.2 %; Neutrophils # 10.4 K/mcL (1.6-8.9); Platelet Count 235 K/mcL (140-400); Red Blood Count 4.26 M/mcL (4.19-5.50); Red Cell Distribution Width 12.9 % (11.5-14.5); Segmented Neutrophils % 70.6 %
[2022-03-23 03:33] LABS: White Blood Count 14.7 K/mcL (4.3-11.1)
[2022-03-23 03:47] LABS: BUN/Creatinine Ratio 34 (6-26); Blood Urea Nitrogen 29 mg/dL (8-23); Calcium 8.5 mg/dL (8.6-10.3); Carbon Dioxide 33 mEq/L (23-29); Chloride 98 mEq/L (98-107); Glucose 328 mg/dL (70-105); Osmolality,Calculated 299 (280-300); Potassium 5.1 mEq/L (3.5-5.1); Sodium 135 mEq/L (136-145)
[2022-03-23] MEDS: Ipratropium/Albuterol Neb 3 ML IH SCH ×4 (04:01→22:48)
[2022-03-23] MEDS: *HR* Enoxaparin 40 MG/0.4 ML SYRINGE SQ SCH (06:33)
[2022-03-23] MEDS: MethylPREDNISolone 40 MG/ML VIAL IVP SCH (06:51)
[2022-03-23] MEDS: Nystatin SUSP 5 ML UD.LIQ PO SCH ×2 (08:19→21:36)
[2022-03-23] MEDS: Insulin DETEMIR 100 UNIT/ML X5UNITS SUBQ SCH ×2 (08:20→21:32)
[2022-03-23] MEDS: lamoTRIgine 100 MG TABLET PO SCH ×2 (08:20→21:31)
[2022-03-23] MEDS: Aspirin Enteric Coated 81 MG Tablet PO SCH (08:20)
[2022-03-23] MEDS: Insulin LISPRO 300 UNITS/3 ML VIAL SUBQ SCH ×7 (08:21→21:33)
[2022-03-23] MEDS: Budesonide/Formoterol 160/4.5 1 PUFF INH IH SCH ×2 (09:51→22:48)
[2022-03-23] MEDS: Sennosides/Docusate Sodium TABLET PO SCH (21:31)
[2022-03-24] MEDS: Ipratropium/Albuterol Neb 3 ML IH SCH ×2 (04:10→09:24)
[2022-03-24] MEDS: *HR* Enoxaparin 40 MG/0.4 ML SYRINGE SQ SCH (05:52)
[2022-03-24] MEDS: Insulin LISPRO 300 UNITS/3 ML VIAL SUBQ SCH ×4 (07:48→12:10)
[2022-03-24] MEDS: lamoTRIgine 100 MG TABLET PO SCH (07:57)
[2022-03-24] MEDS: Nystatin SUSP 5 ML UD.LIQ PO SCH ×2 (07:57→09:37)
[2022-03-24] MEDS: Aspirin Enteric Coated 81 MG Tablet PO SCH (07:57)
[2022-03-24] MEDS: Insulin DETEMIR 100 UNIT/ML X5UNITS SUBQ SCH (07:58)
[2022-03-24] MEDS ORDERED: predniSONE 20 MG TABLET PO SCH (09:00)
[2022-03-24] MEDS: Budesonide/Formoterol 160/4.5 1 PUFF INH IH SCH ×2 (09:33→09:39)
[2022-03-24 09:50] VITALS: O2SAT 96
[2022-03-24 11:59] VITALS: BP 136/73; PULSE 82; TEMP 95
== END 2022-03-24 12:59 | disposition home or self-care (01) | DRG 190 ==
LOC: EMEROOARM 12:56 → 2ANU 12:56 → SUATTDRO 16:56 → 2ANU 18:00 → SUATTDRO 03-15 12:44
PROVIDERS: ADMIT Internal Medicine; ATTEND General Practice